=== PATIENT | male | born 1965 | race Hispanic/Latino ===

== ENCOUNTER 2017-11-26 12:57 | Inpatient (IN) | payer OTHER ==
[~2017-11-26] VITALS: Ht 177.8 cm; Wt 72.1 kg
[~2017-11-26 12:57] MED LIST: ATORVASTATIN CA20 MG PO; CARVEDILOL3.125 MG PO; HYDROCORTISON28.4 G2 TOP; LASIX40 MG PO; LISINOPRIL2.5 MG PO; PRILOSEC OTC20 MG; PULMICORT FLEXHA1 EA INH; SPIRONOLACTONE25 MG PO; WARFARIN SODIUM5 MG PO
[2017-11-26 14:38] VITALS: BP 103/65
[2017-11-26 15:03] VITALS: BP 103/65
[2017-11-26] MEDS ORDERED: COUMADIN5 MG PO (15:16)
[2017-11-26 15:52] VITALS: BP 103/65
[2017-11-26 16:02] LABS: BASOPHILS # (AUTO) 0.1 (0.0-0.1); BASOPHILS % 0.6 % (0.0-1.0); EOSINOPHILS # (AUTO) 0.3 (0.0-0.4); EOSINOPHILS % 3.9 % (0.0-6.0); HEMATOCRIT 41.6 % (38.2-49.6); HEMOGLOBIN 13.9 g/dL (14.0-18.0); LYMPHOCYTES # (AUTO) 1.9 (1.0-3.2); LYMPHOCYTES % 22.2 % (18.0-39.1); MEAN CORPUSCULAR HEMOGLOBIN 32.3 pg (28-32); MEAN CORPUSCULAR HGB CONC 33.4 g/dL (31-35); MEAN CORPUSCULAR VOLUME 96.5 fL (81-99); MONOCYTES # (AUTO) 0.7 (0.2-0.8); MONOCYTES % 8.4 % (4.4-11.3); NEUTROPHILS # (AUTO) 5.5 (2.1-6.9); NEUTROPHILS % 64.5 % (38.7-80.0); PLATELET COUNT 165 x10e3/uL (140-360); RED BLOOD COUNT 4.31 x10e6/uL (4.3-5.7); RED CELL DISTRIBUTION WIDTH 13.1 % (11.7-14.4)
[2017-11-26 16:10] LABS: INR 2.03; PROTHROMBIN TIME 21.6 seconds (11.9-14.5)
[2017-11-26 16:17] LABS: ALBUMIN 4.1 g/dL (3.5-5.0); ALBUMIN/GLOBULIN RATIO 1.3 (0.8-2.0); ANION GAP 12.9 mmol/L (8-16); CALCIUM 9.4 mg/dL (8.4-10.2); CREATININE, SERUM 1.26 mg/dL (0.72-1.25); POTASSIUM 3.9 mmol/L (3.5-5.1)
[2017-11-26 16:26] VITALS: BP 117/69
[2017-11-26] MEDS ORDERED: CARVEDILOL 3.125 MG TAB PO SCH (17:00)
[2017-11-26] MEDS: WARFARIN SOD 5 MG TAB PO SCH (17:57)
[2017-11-26] MEDS: PIPER-TAZ 3.375 GM 50 ML IV SCH (17:57)
[2017-11-26] MEDS: CARVEDILOL 12.5 MG TAB PO SCH (17:57)
[2017-11-26] MEDS ORDERED: ONDANSETRON HCL 4 MG ORAL DISINTEGRATING TAB PO PRN (18:15)
--- NOTE | 2017-11-26 18:19 | History and Physical ---
A 52-year-old gentleman comes in with left lower extremity swelling and hematoma status post fall. HISTORY OF PRESENT ILLNESS: Mr. Baumann has a history of cardiomyopathy, history of hypertension, history of CVA and the patient fell on a concrete cylinder and hit his left leg and had anterior wilson laceration which had developed into hematoma. The patient also had ecchymosis in the lower extremity. It was hard to walk on. He came into the clinic yesterday and was treated with IM antibiotics. The patient was seen back today in the office and DVT workup was done and DVT was positive and the patient was sent for further workup at the hospital. PAST MEDICAL HISTORY: History of cardiomyopathy, history of pericardial effusion, history of hypertension and history of stroke in the past. The patient also has history of peripheral arterial disease. SOCIAL HISTORY: He is a former smoker. No ETOH. No IV drug abuse. MEDICATIONS: The patient takes aspirin 81 mg, warfarin 5 mg in varying dose. Lasix 40 mg once daily. 80 mg once a day. Carvedilol 6.25 mg twice a day. Atorvastatin 20 mg and also takes metformin 500 mg daily for his diabetes. ALLERGIES: NO KNOWN DRUG ALLERGIES. REVIEW OF SYSTEMS: Negative for chest pain or shortness of breath. No nausea, vomiting or diarrhea. No constipation. No rectal pain. No hematochezia and no hematemesis. PHYSICAL EXAMINATION GENERAL: The patient is alert and oriented x3. VITAL SIGNS: Temperature 98.5, pulse 72, respirations 18, blood pressure 103/65, pulse oximetry 100%. HEENT: Normocephalic, atraumatic. Pupils react to light and accommodation. CVS: S1 and S2 normal. Left chest wall with AICD. ABDOMEN: Nontender, nondistended. EXTREMITIES: Left lower extremity with open wound on the left lower extremity, lower 1/3 of leg and anterior wilson. Positive for tense hematoma with skin break and small ulceration of the muscles in the lower extremities with swelling and erythema in the lower extremity too. LABORATORY DATA: White count 8.5, hemoglobin 13.9, hematocrit 41.6, sodium 143, creatinine 1.26, coags PT 21.69, INR 2.03. ASSESSMENT: Left lower extremity hematoma, questionable cellulitis around it. PLAN: Will go ahead and start the patient on antibiotics of Zosyn 3.25 mg IV q.6 h. and also put him back on the warfarin. PT and INR daily. Doppler shows DVT. Will continue with Coumadin. He is adequately anticoagulated at this time. Wound care will be ordered and also will consult Dr. Fraire to see about his cardiomyopathy. Further recommendations depending on clinical course. Will continue to monitor the patient and PT and INR daily. Job#: [id number] MICHELINE
[2017-11-26 19:50] VITALS: BP 105/62
[2017-11-26] MEDS: MORPHINE SULFATE 2 MG/ML SYR IV PRN (19:50)
[2017-11-26 20:01] VITALS: BP 105/62
[2017-11-26] MEDS: ATORVASTATIN 20 MG TAB PO SCH (20:19)
[2017-11-26] MEDS ORDERED: METFORMIN HCL500 MG PO (20:54)
[2017-11-26] MEDS ORDERED: ASPIR 8181 MG PO (20:54)
[2017-11-27] VITALS (8 sets, daily range): BP systolic 94–131; BP diastolic 59–76
[2017-11-27] MEDS: PIPER-TAZ 3.375 GM 50 ML IV SCH ×4 (00:28→17:26)
[2017-11-27] MEDS: MORPHINE SULFATE 2 MG/ML SYR IV PRN ×2 (01:42→08:27)
[2017-11-27 07:03] LABS: BASOPHILS % 0.4 % (0.0-1.0); EOSINOPHILS # (AUTO) 0.3 (0.0-0.4); EOSINOPHILS % 4.6 % (0.0-6.0); HEMATOCRIT 40.6 % (38.2-49.6); HEMOGLOBIN 13.7 g/dL (14.0-18.0); LYMPHOCYTES # (AUTO) 1.9 (1.0-3.2); LYMPHOCYTES % 28.6 % (18.0-39.1); MEAN CORPUSCULAR HEMOGLOBIN 32.6 pg (28-32); MEAN CORPUSCULAR HGB CONC 33.7 g/dL (31-35); MEAN CORPUSCULAR VOLUME 96.7 fL (81-99); MONOCYTES # (AUTO) 0.6 (0.2-0.8); MONOCYTES % 9.3 % (4.4-11.3); NEUTROPHILS # (AUTO) 3.8 (2.1-6.9); NEUTROPHILS % 56.7 % (38.7-80.0); PLATELET COUNT 158 x10e3/uL (140-360); RED CELL DISTRIBUTION WIDTH 13.1 % (11.7-14.4)
[2017-11-27 07:20] LABS: INR 1.92; PROTHROMBIN TIME 20.6 seconds (11.9-14.5)
[2017-11-27 07:42] LABS: ALANINE AMINOTRANSFERASE 15 IU/L (0-55); ALBUMIN 3.7 g/dL (3.5-5.0); ALBUMIN/GLOBULIN RATIO 1.3 (0.8-2.0); ALKALINE PHOSPHATASE 48 IU/L (40-150); ANION GAP 12.5 mmol/L (8-16); BLOOD UREA NITROGEN 16 mg/dL (7-26); BUN/CREATININE RATIO 16 (6-25); CALCIUM 8.9 mg/dL (8.4-10.2); CARBON DIOXIDE 26 mmol/L (22-29); CHLORIDE 107 mmol/L (98-107); EST GLOMERULAR FILTRATION RATE > 60 ML/MIN (60-); GLUCOSE 105 mg/dL (74-118); POTASSIUM 4.5 mmol/L (3.5-5.1); SODIUM 141 mmol/L (136-145)
[2017-11-27] MEDS: FUROSEMIDE 40 MG TAB PO SCH (08:11)
[2017-11-27] MEDS: METFORMIN HCL 500 MG TAB PO SCH ×2 (08:11→17:26)
[2017-11-27] MEDS: CARVEDILOL 12.5 MG TAB PO SCH ×2 (08:12→15:42)
--- NOTE | 2017-11-27 09:11 | Consultation ---
DATE OF CONSULTATION: November 26, 2017 REASON FOR CONSULTATION: DVT to left leg and cardiomyopathy. CONSULTING PHYSICIAN: Dr. Epifanio Bueno HPI: This is a 52-year-old male with history of CAD, ICD that presented status post fall. According to the patient, he tripped at home and fell. Has swelling and hematoma to the left leg. He stated he saw the PCP and had an outpatient Doppler done that showed DVT, and he was admitted for further evaluation. He was already on Coumadin for history of stroke in the past. He denied any chest pain, any dizziness, any shortness of breath, any headache or diaphoresis. PAST MEDICAL HISTORY: Nonischemic cardiomyopathy, pulmonary hypertension, systolic CHF, pericardial effusion, PAD, CVA, COPD, cholelithiasis, alcohol abuse, and diabetes and hypertension. PAST SURGICAL HISTORY: Cardiac catheterization with normal coronaries in 2013, status post biventricular ICD placement for nonischemic cardiomyopathy, EF was 15% to 20%. FAMILY HISTORY: Noncontributory. SOCIAL HISTORY: He quit smoking and drinking in 2013 and he lives at home with family. MEDICATIONS: See med list. ALLERGIES: HE IS NOT ALLERGIC TO ANY MEDICATION. REVIEW OF THE SYSTEMS: Negative except those mentioned above. He is positive for DVT to left leg and cellulitis. PHYSICAL EXAMINATION: VITAL SIGNS: Temperature 97, heart rate 62, blood pressure 119/68, respiration 17, oxygen saturation 98% on room air. GENERAL: He is awake, alert, and oriented x3. HEENT: Mucous membranes moist. NECK: Supple. LUNGS: Bilaterally clear to auscultation. CARDIOVASCULAR: S1 and S2 present. ABDOMEN: Soft. NEUROLOGICAL: Intact. EXTREMITIES: On the right was normal, on the left with trace edema. LABS: Sodium 143, potassium 3.9, chloride 106, CO2 28, BUN 18, creatinine 1.26, glucose 92. White blood cell 6.74, hemoglobin 13.7, hematocrit 40.6, platelet 158,000. PT 20.6, INR 1.92. IMPRESSION: 1. Left leg deep venous thrombosis. 2. Cellulitis on the left leg. 3. Hypertension. 4. Diabetes. 5. Coronary artery disease with nonischemic cardiomyopathy. 6. Status post fall. ASSESSMENT AND PLAN: 1. Will go ahead and get another echocardiogram to reassess the LV and the valve function. 2. He is already on Coumadin, so will go ahead and continue the same. INR 1.92 today. 3. His ICD was recently interrogated with good function and 7-1/2 years battery life remaining. Continue antibiotic for the infection. Thank you for this consultation. Dictated by: Heather Charles NP Job#: [id number] DR GALLEGOS
[2017-11-27] MEDS: WARFARIN SOD 5 MG TAB PO SCH (17:26)
[2017-11-27] MEDS: ASPIRIN 81 MG CHEW TAB PO SCH (20:40)
[2017-11-27] MEDS: HYDROCODONE/APAP 5MG-325MG TAB PO PRN (20:40)
[2017-11-27] MEDS: ATORVASTATIN 20 MG TAB PO SCH (20:40)
[2017-11-28] VITALS (8 sets, daily range): BP systolic 109–123; BP diastolic 58–77
[2017-11-28] MEDS: PIPER-TAZ 3.375 GM 50 ML IV SCH ×5 (00:18→23:58)
[2017-11-28] MEDS: HYDROCODONE/APAP 5MG-325MG TAB PO PRN ×3 (01:01→17:40)
[2017-11-28] MEDS ORDERED: SODIUM CHLORIDE 0.9% 250ML 250 ML ONE (06:14)
[2017-11-28 07:14] LABS: INR 1.92; PROTHROMBIN TIME 20.6 seconds (11.9-14.5)
[2017-11-28] MEDS: FUROSEMIDE 40 MG TAB PO SCH (09:00)
[2017-11-28] MEDS: METFORMIN HCL 500 MG TAB PO SCH ×2 (09:00→17:40)
[2017-11-28] MEDS: CARVEDILOL 12.5 MG TAB PO SCH ×3 (09:00→20:35)
[2017-11-28] MEDS: MUPIROCIN 2% OINT 22 GM TUBE TOP SCH (13:53)
[2017-11-28] MEDS ORDERED: WARFARIN SOD 5 MG TAB PO SCH (17:00)
[2017-11-28] MEDS: WARFARIN SOD 5 MG TAB PO SCH (17:40)
[2017-11-28] MEDS: WARFARIN SOD 2 MG TAB PO SCH (17:40)
[2017-11-28] MEDS: ASPIRIN 81 MG CHEW TAB PO SCH (20:35)
[2017-11-28] MEDS: ATORVASTATIN 20 MG TAB PO SCH (20:35)
[2017-11-28] MEDS: MORPHINE SULFATE 2 MG/ML SYR IV PRN (20:39)
[2017-11-29] VITALS (8 sets, daily range): BP systolic 100–136; BP diastolic 61–88
[2017-11-29] MEDS: HYDROCODONE/APAP 5MG-325MG TAB PO PRN ×4 (00:09→18:40)
[2017-11-29] MEDS: MUPIROCIN 2% OINT 22 GM TUBE TOP SCH (06:00)
[2017-11-29] MEDS: PIPER-TAZ 3.375 GM 50 ML IV SCH ×4 (06:01→23:51)
[2017-11-29 07:14] LABS: INR 2.28; PROTHROMBIN TIME 23.6 seconds (11.9-14.5)
[2017-11-29] MEDS ORDERED: PHYTONADIONE 10 MG/ML AMP SQ ONE (08:55)
[2017-11-29] MEDS: CARVEDILOL 12.5 MG TAB PO SCH ×2 (09:30→21:35)
[2017-11-29] MEDS: FUROSEMIDE 40 MG TAB PO SCH (09:30)
[2017-11-29] MEDS: METFORMIN HCL 500 MG TAB PO SCH ×2 (09:30→17:20)
[2017-11-29] MEDS ORDERED: SODIUM CHLORIDE 0.9% 250ML 250 ML ONE (09:34)
--- NOTE | 2017-11-29 10:02 | Consultation ---
DATE OF CONSULTATION: November 29, 2017 REFERRING PHYSICIAN: Dr. Epifanio Bueno HISTORY OF PRESENT ILLNESS: Patient is a 52-year-old male with history of cardiomyopathy and hypertension, who fell on concrete cylinder about a week ago, he developed a laceration on the leg and developed a hematoma. He also on evaluation found to have deep venous thrombosis, is admitted for anticoagulation. Patient's hematoma has been tense. He has now developed some overlying skin necrosis. PAST MEDICAL HISTORY: Significant for cardiomyopathy, hypertension, previous cerebrovascular accident, peripheral vascular disease. MEDICATIONS AT HOME: Aspirin, warfarin, Lasix, carvedilol, atorvastatin, metformin. ALLERGIES: HE HAS NO KNOWN ALLERGIES. FAMILY HISTORY: Noncontributory. SOCIAL HISTORY: The patient does not drink alcohol. Former smoker, does not smoke now. REVIEW OF SYSTEMS: As stated above, otherwise negative. PHYSICAL EXAMINATION: GENERAL: The patient is awake and alert. VITAL SIGNS: Normal. He is afebrile. HEENT: Revealed no scleral icterus. NECK: Has no masses. LUNGS: Equal breath sounds are clear. CARDIAC: Regular rate and rhythm. ABDOMEN: Soft with no tenderness. EXTREMITIES: In the left leg just medial to the tibia, there is area of swelling with some overlying skin necrosis. ASSESSMENT: This is a 52-year-old male with multiple medical problems with hematoma in the left leg with some devitalized skin, likely benefit from evacuation of hematoma, debridement of the wound. Plan to schedule this for tomorrow. He has been on Coumadin, plan to hold the Coumadin. The proposed surgery was explained to the patient. Thank you for asking me to see Mr. Baumann. Job#: [id number]
[2017-11-29] MEDS ORDERED: WARFARIN SOD 5 MG TAB PO SCH (17:00)
[2017-11-29] MEDS ORDERED: MORPHINE SULFATE 2 MG/ML SYR IV PRN (20:00)
[2017-11-29] MEDS: ATORVASTATIN 20 MG TAB PO SCH (21:35)
[2017-11-29] MEDS: ASPIRIN 81 MG CHEW TAB PO SCH (21:35)
[2017-11-30] VITALS (8 sets, daily range): BP systolic 102–116; BP diastolic 57–70
[2017-11-30] MEDS: HYDROCODONE/APAP 5MG-325MG TAB PO PRN ×3 (00:02→19:06)
[2017-11-30] MEDS: PIPER-TAZ 3.375 GM 50 ML IV SCH ×3 (05:53→17:39)
[2017-11-30 06:00] LABS: INR 1.46; PROTHROMBIN TIME 16.7 seconds (11.9-14.5)
[2017-11-30] MEDS: MUPIROCIN 2% OINT 22 GM TUBE TOP SCH (06:00)
[2017-11-30 06:05] LABS: BASOPHILS % 0.4 % (0.0-1.0); EOSINOPHILS # (AUTO) 0.3 (0.0-0.4); EOSINOPHILS % 3.4 % (0.0-6.0); HEMOGLOBIN 13.9 g/dL (14.0-18.0); LYMPHOCYTES # (AUTO) 1.9 (1.0-3.2); LYMPHOCYTES % 23.5 % (18.0-39.1); MEAN CORPUSCULAR HEMOGLOBIN 32.3 pg (28-32); MEAN CORPUSCULAR HGB CONC 33.9 g/dL (31-35); MEAN CORPUSCULAR VOLUME 95.3 fL (81-99); MONOCYTES # (AUTO) 0.9 (0.2-0.8); MONOCYTES % 11.6 % (4.4-11.3); NEUTROPHILS # (AUTO) 4.8 (2.1-6.9); NEUTROPHILS % 60.8 % (38.7-80.0); PLATELET COUNT 170 x10e3/uL (140-360); RED CELL DISTRIBUTION WIDTH 12.8 % (11.7-14.4)
[2017-11-30 06:09] LABS: ALANINE AMINOTRANSFERASE 16 IU/L (0-55); ALBUMIN 3.7 g/dL (3.5-5.0); ALBUMIN/GLOBULIN RATIO 1.1 (0.8-2.0); ALKALINE PHOSPHATASE 59 IU/L (40-150); ANION GAP 12.6 mmol/L (8-16); BLOOD UREA NITROGEN 14 mg/dL (7-26); BUN/CREATININE RATIO 15 (6-25); CALCIUM 9.4 mg/dL (8.4-10.2); CARBON DIOXIDE 22 mmol/L (22-29); CHLORIDE 104 mmol/L (98-107); CREATININE, SERUM 0.96 mg/dL (0.72-1.25); EST GLOMERULAR FILTRATION RATE > 60 ML/MIN (60-); GLUCOSE 114 mg/dL (74-118); POTASSIUM 3.6 mmol/L (3.5-5.1); SODIUM 135 mmol/L (136-145)
[2017-11-30] MEDS: METFORMIN HCL 500 MG TAB PO SCH ×2 (08:00→17:04)
[2017-11-30] MEDS: FUROSEMIDE 40 MG TAB PO SCH ×2 (08:26→13:43)
[2017-11-30] MEDS: CARVEDILOL 12.5 MG TAB PO SCH ×2 (08:35→20:58)
[2017-11-30] MEDS ORDERED: BACITRACIN 50,000 UNIT VIAL ONE (08:54)
--- NOTE | 2017-11-30 10:18 | Operative Report ---
DATE OF PROCEDURE: November 30, 2017 PREOPERATIVE DIAGNOSIS: Hematoma left leg with overlying skin necrosis. POSTOPERATIVE DIAGNOSIS: Hematoma left leg with overlying skin necrosis. PROCEDURE: 1. Excisional debridement of skin, 3 square centimeters. 2. Evacuation of hematoma, left leg. DYNAMITE RECLAIMER: None. ANESTHESIA: General. INDICATIONS AND FINDINGS: The patient is a 52-year-old male who injured his leg a few weeks ago and developed swelling in the area with overlying skin necrosis. At surgery there was an area approximately 1.5 x 2 cm of skin which was devitalized, which was excised. There was about 40 mL of hematoma in the subcutaneous tissue extended down to the fascia. TECHNIQUE: After adequate general anesthesia with the patient in the supine position, the left leg was prepped and draped in sterile fashion with Betadine solution. The devitalized skin was excised and then beneath it here was hematoma and hematoma was evacuated. There was no purulence seen. There was no other necrotic tissue seen. Once all the hematoma was evacuated, the wound was irrigate with saline and then packed open with 1/2 inch iodoform gauze and sterile dressing applied. The patient tolerated procedure well. Estimated blood loss was 40 mL of hematoma. There were no complications. All counts were correct. Patient was taken to the recovery room in satisfactory condition. Job#: [id number] GH cc:MITALI GAY MD
[2017-11-30] MEDS: WARFARIN SOD 5 MG TAB PO SCH (17:22)
[2017-11-30] MEDS: WARFARIN SOD 2 MG TAB PO SCH (17:22)
[2017-11-30] MEDS ORDERED: PROPOFOL IV EMULSION 10 MG/ML 20 ML VIAL ONE (18:36)
[2017-11-30] MEDS ORDERED: DEXAMETHASONE SOD PHOS INJ 4 MG/ML VIAL ONE (18:36)
[2017-11-30] MEDS ORDERED: SEVOFLURANE INHAL SOLN 250 ML PEN BTL ONE (18:36)
[2017-11-30] MEDS: ASPIRIN 81 MG CHEW TAB PO SCH (20:58)
[2017-11-30] MEDS: ATORVASTATIN 20 MG TAB PO SCH (20:58)
[2017-12-01] VITALS (7 sets, daily range): BP systolic 112–129; BP diastolic 64–74
[2017-12-01] MEDS: PIPER-TAZ 3.375 GM 50 ML IV SCH ×4 (00:03→17:08)
[2017-12-01] MEDS: HYDROCODONE/APAP 5MG-325MG TAB PO PRN ×2 (04:56→15:11)
[2017-12-01 07:37] LABS: INR 1.15; PROTHROMBIN TIME 13.8 seconds (11.9-14.5)
[2017-12-01] MEDS: METFORMIN HCL 500 MG TAB PO SCH ×2 (08:40→17:08)
[2017-12-01] MEDS: FUROSEMIDE 40 MG TAB PO SCH (08:40)
[2017-12-01] MEDS: CARVEDILOL 12.5 MG TAB PO SCH ×2 (08:40→21:17)
[2017-12-01] MEDS: MUPIROCIN 2% OINT 22 GM TUBE TOP SCH (09:00)
[2017-12-01] MEDS: WARFARIN SOD 2 MG TAB PO SCH (17:08)
[2017-12-01] MEDS: WARFARIN SOD 5 MG TAB PO SCH (17:08)
[2017-12-01] MEDS: ATORVASTATIN 20 MG TAB PO SCH (21:17)
[2017-12-01] MEDS: ASPIRIN 81 MG CHEW TAB PO SCH (21:17)
[2017-12-02] VITALS: BP 103/56
[2017-12-02] MEDS: PIPER-TAZ 3.375 GM 50 ML IV SCH ×2 (00:34→06:03)
[2017-12-02] MEDS: HYDROCODONE/APAP 5MG-325MG TAB PO PRN ×2 (00:36→06:36)
[2017-12-02 04:00] VITALS: BP 118/75
[2017-12-02 07:18] LABS: BASOPHILS # (AUTO) 0.1 (0.0-0.1); BASOPHILS % 0.7 % (0.0-1.0); EOSINOPHILS # (AUTO) 0.3 (0.0-0.4); EOSINOPHILS % 3.8 % (0.0-6.0); HEMATOCRIT 39.5 % (38.2-49.6); HEMOGLOBIN 13.3 g/dL (14.0-18.0); LYMPHOCYTES # (AUTO) 2.1 (1.0-3.2); LYMPHOCYTES % 28.2 % (18.0-39.1); MEAN CORPUSCULAR HGB CONC 33.7 g/dL (31-35); MEAN CORPUSCULAR VOLUME 95.2 fL (81-99); MONOCYTES # (AUTO) 0.7 (0.2-0.8); MONOCYTES % 9.1 % (4.4-11.3); NEUTROPHILS # (AUTO) 4.4 (2.1-6.9); NEUTROPHILS % 57.8 % (38.7-80.0); PLATELET COUNT 191 x10e3/uL (140-360); RED BLOOD COUNT 4.15 x10e6/uL (4.3-5.7); RED CELL DISTRIBUTION WIDTH 12.8 % (11.7-14.4)
[2017-12-02 07:23] LABS: INR 1.15; PROTHROMBIN TIME 13.8 seconds (11.9-14.5)
[2017-12-02 07:35] VITALS: BP 118/75
[2017-12-02 07:45] LABS: ALANINE AMINOTRANSFERASE 17 IU/L (0-55); ALBUMIN 3.5 g/dL (3.5-5.0); ALKALINE PHOSPHATASE 49 IU/L (40-150); ANION GAP 12.7 mmol/L (8-16); BLOOD UREA NITROGEN 16 mg/dL (7-26); BUN/CREATININE RATIO 19 (6-25); CALCIUM 9.2 mg/dL (8.4-10.2); CARBON DIOXIDE 23 mmol/L (22-29); CHLORIDE 109 mmol/L (98-107); CREATININE, SERUM 0.83 mg/dL (0.72-1.25); EST GLOMERULAR FILTRATION RATE > 60 ML/MIN (60-); GLUCOSE 100 mg/dL (74-118); POTASSIUM 3.7 mmol/L (3.5-5.1); SODIUM 141 mmol/L (136-145)
[2017-12-02] MEDS ORDERED: COUMADIN5 MG PO (07:45)
[2017-12-02 08:01] VITALS: BP 127/76
[2017-12-02] MEDS: METFORMIN HCL 500 MG TAB PO SCH (08:06)
[2017-12-02] MEDS: FUROSEMIDE 40 MG TAB PO SCH (08:06)
[2017-12-02] MEDS: CARVEDILOL 12.5 MG TAB PO SCH (08:06)
[2017-12-02] MEDS ORDERED: WARFARIN SOD 5 MG TAB PO ONE (08:30)
[2017-12-02] MEDS ORDERED: MIDAZOLAM HCL 2 MG/2 ML VIAL ONE (21:41)
[2017-12-02] MEDS ORDERED: FENTANYL CITRATE/PF 100MCG/2 ML INJ ONE (21:41)
== END 2017-12-02 09:40 | disposition home or self-care (01) | DRG 264 ==
LOC: MED/SURG 14:08
PROVIDERS: ADMIT Family Medicine; ATTEND Family Medicine
PROC: 30233K1 Transfusion of Nonautologous Frozen Plasma into Peripheral Vein, Percutaneous Approach (ICD-10-PCS; 2017-11-29)
PROC: 0JBP0ZZ Excision of Left Lower Leg Subcutaneous Tissue and Fascia, Open Approach (ICD-10-PCS; principal; 2017-11-30 09:30)
DX: I82.4Z2 Acute embolism and thrombosis of unspecified deep veins of left distal lower extremity (principal); L03.116 Cellulitis of left lower limb; I50.22 Chronic systolic (congestive) heart failure; I42.9 Cardiomyopathy, unspecified; I96 Gangrene, not elsewhere classified; S81.802A Unspecified open wound, left lower leg, initial encounter; W01.0XXA Fall on same level from slipping, tripping and stumbling without subsequent striking against object, initial encounter; Z86.73 Personal history of transient ischemic attack (TIA), and cerebral infarction without residual deficits; J44.9 Chronic obstructive pulmonary disease, unspecified; I11.0 Hypertensive heart disease with heart failure; I27.20 Pulmonary hypertension, unspecified; Z87.891 Personal history of nicotine dependence; I25.10 Atherosclerotic heart disease of native coronary artery without angina pectoris; Z95.810 Presence of automatic (implantable) cardiac defibrillator
CPT/HCPCS: 36415; 80053; 82948; 85025; 85610; 86900; 93306; 96361; J1100; J2250; J2270; J2543; J3430; J7050; P9017